=== PATIENT | male | born 1980 | race Caucasian/White ===

== ENCOUNTER 2021-06-10 19:29 | Emergency (ER) | payer OTHER ==
[2021-06-10 20:07] VITALS: BP 140/91; PULSE 75; TEMP 98.1; BMI 35.2
[2021-06-10] MEDS ORDERED: DEXAMETHASONE 4 MG TABLET (FP) PO ONE (20:45)
[2021-06-10] MEDS ORDERED: DEXAMETHASONE SOD PHOSPHATE 10 MG/1 ML VIAL ONE (20:48)
== END 2021-06-10 21:34 | disposition home or self-care (01) ==
LOC: JER 19:29 → JERFT 19:29
DX: L23.7 Allergic contact dermatitis due to plants, except food (principal)
CPT/HCPCS: 99283-25